=== PATIENT | male | born 2000 | race Caucasian/White ===

== ENCOUNTER 2021-03-01 08:26 | Emergency (ER) | payer OTHER, SELFPAY ==
[2021-03-01 08:31] VITALS: BP 135/90; PULSE 89; RESP 19; O2SAT 98; BMI 32.1
--- NOTE | 2021-03-01 09:13 | ED_ITS ---
HPI - General Adult General Chief complaint: General Medical Stated complaint: nose bleed Time Seen by Provider: 03/01/21 09:05 Source: patient Mode of arrival: ambulatory History of Present Illness HPI narrative: 20-year-old male with no significant past medical history presenting to the ED complaining of recurrent nosebleeds since yesterday, reporting 6-7 episodes of epistaxis lasting about 10-15mins, stopped with direct pressure, most recently 5:30 a.m. Admits to similar symptoms in the past, which required cauterization. Denies injury/trauma or picking. Denies taking anticoagulation. Denies lightheadedness/dizziness, headache, abdominal pain nausea/vomiting Onset (ago): day(s) Related Data Allergies Allergy/AdvReac Type Severity Reaction Status Date / Time No Known Allergies Allergy Unverified 07/30/20 17:06 Review of Systems Review of Systems: Constitutional: No Fever, No Chills, No Fatigue, No Malaise ENT/Mouth: +epistaxis, No Hearing loss, No Ear Pain, No Nasal Congestion, No Sinus Pain, No sore throat, No Swallowing Difficulty Eyes: No Eye Pain, No Vision Changes Cardiovascular: No Chest Pain, No SOB Respiratory: No Cough, No Dyspnea Gastrointestinal: No Nausea, No Vomiting, No Diarrhea, No Constipation, No Abdominal pain Musculoskeletal: No joint pain Skin: No Skin Lesions, No rash Neuro: No Weakness, No Numbness, No Paresthesias, No Loss of Consciousness, No Dizziness, No Headache Yes all other systems are reviewed and are negative Neurologic: Denies Abnormal speech present [facility] Past Medical History Attestation statement: The following information was validated with the patient. Social History Social History Advance Directives: No Advance Directives Information Provided: No Physical Exam 2 Vital Signs: Vital Signs: Last Vital Signs Pulse 89 03/01/21 08:31 Resp 19 03/01/21 08:31 BP 135/90 H 03/01/21 08:31 Pulse Ox 98 03/01/21 08:31 Body Mass Index 32.1 Const: General: cooperative, healthy appearing, comfortable and no acute distress Orientation/consciousness: patient oriented x3 Limitations: no limitations HENMT: Other: No active epistaxis or dry blood. No septal hematoma Head: Yes normal to inspection and Yes atraumatic Ears: hearing grossly normal bilaterally General nose exam: Normal external nose present, Normal nares present, Normal nasal mucous membranes and turbinates present, Nasal discharge present, no epistaxis and no foreign body in nares Face and sinus: Yes normal facial exam Mouth: Normal oral and palatal mucosa present and no muffled voice Throat: Yes posterior oropharynx normal, Yes uvula midline and No peritonsillar mass Eyes: General: appearance normal, both eyes and all related structures EOM: EOMs intact bilaterally Neck: Neck: Yes normal visual inspection and Yes no meningeal signs Resp: Effort & Inspection: normal respiratory effort Cardio: Rate: regular rate Skin: Rashes: no rashes Wounds: no wounds Neuro: General: patient oriented x3, tone normal, moves all extremities and no meningeal signs Cognition (Neuro): normal cognition Speech: No Abnormal speech present Gait exam (Neuro): Normal gait present Extrem: General: Yes normal to inspection Course Course Course Narrative: -no leukocytosis. H&H 12.6/41.1, platelets WNL >> no active epistaxis since ED arrival -coags slightly elevated, labs otherwise unremarkable >> results discussed with patient and mother at bedside including worrisome signs and symptoms and strict return precautions. They verbalized understanding feel safe for discharge home Medical Decision Making MDM Narrative Medical decision making narrative: 20-year-old male with no significant past medical history presenting to the ED complaining of recurrent nosebleeds since yesterday, reporting 6-7 episodes of epistaxis lasting about 10-15mins, stopped with direct pressure, most recently 5:30 a.m. On exam VSS, NAD/well-appearing, no active epistaxis at present. Rule out anemia/clotting disorder Plan: CBC/CMP, coags, observe for rebleeding Lab Data Result diagrams: 03/01/21 09:24 03/01/21 09:24 Labs: Lab Results 03/01/21 03/01/21 03/01/21 Range/Units 09:24 09:24 09:24 WBC 9.0 (4.8-10.8) X10*3/uL RBC 6.65 H (4.60-5.80) X10*6/uL Hgb 12.6 L (14.0-18.0) g/dl Hct 41.1 L (42-52) % MCV 61.8 L (80-98) fL MCH 18.9 L (27.0-33.0) pg MCHC 30.7 L (31.0-36.0) g/dl RDW 17.6 H (11.0-16.0) % Plt Count 287 (160-400) X10*3/uL MPV 10.3 (9.4-12.4) fL Immature Gran % (Auto) 0.2 (0.0-0.4) % Neut % (Auto) 63.0 (45-73) % Lymph % (Auto) 21.6 (20-40) % [place] % (Auto) 11.5 H (2-11) % Eos % (Auto) 3.3 (0-4) % Baso % (Auto) 0.4 (0-2) % Lymph # (Auto) 1.9 (1.2-4.9) X10*3/uL [place] # (Auto) 1.0 (0.1-1.2) X10*3/uL Eos # (Auto) 0.3 (0.0-0.4) X10*3/uL Baso # (Auto) 0.0 (0.0-0.2) X10*3/uL Abs Immat Gran (auto) 0.02 (0.00-0.03) X10*3/uL Absolute Neuts (auto) 5.7 (2.0-8.3) X10*3/uL Absolute Nucleated RBC 0.000 (0.0-0.012) X10*3/uL Nucleated RBC % (auto) 0.0 (0.0-0.2) /100WBC PT 14.0 H (10.8-13.0) SEC INR 1.2 H (0.9-1.1) APTT 41.5 H (24.1-38.0) SEC Sodium 139 (135-145) mmol/L Potassium 4.3 (3.3-5.1) mmol/L Chloride 104 (96-108) mmol/L Carbon Dioxide 26 (22-29) mmol/L Anion Gap 13 (12-20) BUN 14 (9-16) mg/dL Creatinine 1.05 (0.5-1.4) mg/dL Estim Creat Clear Calc 150.2 Estimated GFR > 60 Random Glucose 104 (60-115) mg/dL Calcium 9.3 (8.4-10.2) mg/dL Discharge Plan Discharge Clinical Impression: Recurrent epistaxis Patient Disposition: Home, Self-Care Instructions: Nosebleed (ED) Additional Instructions: Your blood work was reassuring today in the ED, it is important that you follow- up with her primary care doctor as well as an ear nose throat specialist Use saline rinses at home to keep your nasal mucosa moist Also consider getting a humidifier Avoid picking nose, trauma to the area, blowing, or any increased pressure for t he next few days If you rebleed hold direct pressure for 10-15 minutes, this does not control bleeding return to the ED Referrals: Johnny Meehan [Physician] - 2 days
[2021-03-01 09:29] LABS: MANUAL DIFF FLAG NO
[2021-03-01 09:30] LABS: Basophils Percent Auto 0.4 % (0-2); Eosinophils Absolute Auto 0.3 X10*3/uL (0.0-0.4); Eosinophils Percent Auto 3.3 % (0-4); Hematocrit 41.1 % (42-52); Hemoglobin 12.6 g/dl (14.0-18.0); Imm Gran Abs Auto 0.02 X10*3/uL (0.00-0.03); Imm Gran Pct Auto 0.2 % (0.0-0.4); Lymphocytes Absolute Auto 1.9 X10*3/uL (1.2-4.9); Lymphocytes Percent Auto 21.6 % (20-40); Mean Corpuscular HGB Conc 30.7 g/dl (31.0-36.0); Mean Corpuscular Hemoglobin 18.9 pg (27.0-33.0); Mean Platelet Volume 10.3 fL (9.4-12.4); Monocytes Percent Auto 11.5 % (2-11); Neutrophils Absolute Auto 5.7 X10*3/uL (2.0-8.3); Platelet Count 287 X10*3/uL (160-400); Red Blood Count 6.65 X10*6/uL (4.60-5.80); Red Cell Distribution Width 17.6 % (11.0-16.0)
[2021-03-01 09:35] LABS: Mean Corpuscular Volume 61.8 fL (80-98)
[2021-03-01 09:41] LABS: INTERNATIONAL NORM RATIO 1.2 (0.9-1.1)
[2021-03-01 10:00] LABS: Partial Thromboplastin Time 41.5 SEC (24.1-38.0)
[2021-03-01 10:03] LABS: Anion Gap 13 (12-20); Blood Urea Nitrogen 14 mg/dL (9-16); Calcium 9.3 mg/dL (8.4-10.2); Carbon Dioxide 26 mmol/L (22-29); Chloride 104 mmol/L (96-108); Creatinine Clr Calc Pharmacy 150.2; Estimated Glomerular Filt Rate > 60; Glucose Random 104 mg/dL (60-115); Potassium 4.3 mmol/L (3.3-5.1); Sodium 139 mmol/L (135-145)
== END 2021-03-01 10:56 | disposition home or self-care (01) ==
PROVIDERS: Physician Assistant; Emergency Provider Emergency Medicine; PCP Pediatrics
DX: R04.0 Epistaxis (principal)
CPT/HCPCS: 36415; 80048; 85025; 85060; 85610; 85730; 99283

== ENCOUNTER 2021-09-05 09:13 | Emergency (ER) | payer OTHER, SELFPAY ==
--- NOTE | ~2021-09-05 | XR_ITS ---
EXAMINATION: XR CHEST CLINICAL INFORMATION: Chest pain COMPARISON: None TECHNIQUE: 2 views of the chest were obtained. FINDINGS: The lungs are well-expanded and clear. The heart size and pulmonary vascularity is normal. No gross bony abnormality seen. XR/XR chest 2V IMPRESSION: Unremarkable chest exam.
[2021-09-05 09:22] VITALS: BP 122/88; BP 137/83; PULSE 96; PULSE 98; RESP 14; O2SAT 98; O2SAT 99; BMI 25.0
--- NOTE | 2021-09-05 09:29 | ECG_ITS ---
Test Reason : cp Blood Pressure : / mmHG Vent. Rate : 093 BPM Atrial Rate : 093 BPM P-R Int : 148 ms QRS Dur : 108 ms QT Int : 358 ms P-R-T Axes : 042 104 031 degrees QTc Int : 445 ms Normal sinus rhythm Rightward axis Intra-ventricular conduction delay Borderline ECG No previous ECGs available Referred By: David Li Electronically Signed By:ASHLEY CORONADO MD
--- NOTE | 2021-09-05 09:30 | ED_ITS ---
HPI - Chest Pain General Chief Complaint: Chest Pain Stated Complaint: Sharp pain breathing in Time Seen by Provider: 09/05/21 09:28 Source: patient Mode of arrival: ambulatory Limitations: no limitations History of Present Illness HPI narrative: This is a 20 years old patient presented to the emergency department with left-sided pleuritic chest pain since yesterday complaint: chest pain Onset (ago): day(s) (1) Timing of current episode: constant Prior episodes: No Onset: during rest Pain location: substernal and left chest Pain radiation: none Quality: sharp Relieving factors: nothing Exacerbating factors: inspiration Risk Factors Coronary artery disease risk factors: none Thoracic aortic dissection risk factors: none Related Data Allergies Allergy/AdvReac Type Severity Reaction Status Date / Time No Known Allergies Allergy Unverified 07/30/20 17:06 Review of Systems Review of Systems: Yes all other systems are reviewed and are negative Constitutional: Constitutional: Reports no additional constitutional complaints ENT: Reports system reviewed and no additional complaints, except as documented Cardiovascular: Cardiovascular: Denies syncope, Denies rapid heart rate, Denies dyspnea and Denies dyspnea on exertion Respiratory: Respiratory: Denies pain with cough, Denies dyspnea and Denies dyspnea on exertion Musculoskeletal: Musculoskeletal: Reports no additional musculoskeletal complaints Neurologic: Reports system reviewed and no additional complaints, except as documented and Denies syncope [facility] Social History Social History Use of substances other than those prescribed or required for medical reasons: Unable to respond Advance Directives: No Advance Directives Information Provided: No Physical Exam Vital Signs: Vital Signs: Last Vital Signs Pulse 60 09/05/21 10:07 Resp 14 09/05/21 10:07 BP 131/56 L 09/05/21 10:07 Pulse Ox 100 09/05/21 10:07 Body Mass Index 25.0 Const: Other: He looks well he is not toxic-appearing General: cooperative Orientation/consciousness: oriented to person, oriented to place, oriented to time and patient oriented x3 HENMT: Head: Yes normal to inspection Face and sinus: Yes normal facial exam Mouth: Normal oral and palatal mucosa present Neck: Neck: Yes normal visual inspection and Yes full ROM Thyroid: Thyroid normal Carotids: normal carotid upstroke Lymphatic: no lymphadenopathy noted Chest: Chest palpation & inspection: normal inspection of the chest Resp: Effort & Inspection: normal respiratory effort and able to speak in complete sentences Auscultation: clear to auscultation bilaterally Cardio: Jugular venous distension: no JVD Rate: regular rate Rhythm: regular rhythm Heart sounds: S1 normal heart sound present GI: Inspection: Yes normal to inspection Palpation (GI): Soft to palpation and nontender Auscultation: normal bowel sounds Skin: General skin exam: no rashes or lesions noted, elasticity normal and turgor normal Neuro: General: oriented to person, oriented to place, oriented to time and patient oriented x3 Course Reevaluation(s) Reevaluation #1: Feeling better, D-dimer negative, high sensitive troponin negative, chest x-ray was negative, point of care cardiac ultrasound showed no pericardial effusion I think is okay to discharge the patient home MDM - Chest Pain MDM Narrative Medical decision making narrative: Per patient has no significant liver risk of for early coronary artery disease. Pain is pleuritic. I perform a bedside point of care ultrasound there is no pericardial effusion, there is no right ventricular strain left ventricle is torito well. Also patient does lung sliding and this rule out pneumothorax. Will obtain basic labs and electrocardiogram a and we will do a D-dimer given pleuritic nature of the pain Lab Data Result diagrams: 09/05/21 09:45 09/05/21 09:45 Labs: Lab Results 09/05/21 09/05/21 09/05/21 Range/Units 09:45 09:45 09:45 WBC 10.5 (4.8-10.8) X10*3/uL RBC 6.57 H (4.60-5.80) X10*6/uL Hgb 13.0 L (14.0-18.0) g/dl Hct 41.5 L (42-52) % MCV 63.2 L (80-98) fL MCH 19.8 L (27.0-33.0) pg MCHC 31.3 (31.0-36.0) g/dl RDW 18.4 H (11.0-16.0) % Plt Count 260 (160-400) X10*3/uL MPV 10.0 (9.4-12.4) fL Immature Gran % (Auto) 0.3 (0.0-0.4) % Neut % (Auto) 68.9 (45-73) % Lymph % (Auto) 15.8 L (20-40) % [place] % (Auto) 9.4 (2-11) % Eos % (Auto) 5.2 H (0-4) % Baso % (Auto) 0.4 (0-2) % Lymph # (Auto) 1.7 (1.2-4.9) X10*3/uL [place] # (Auto) 1.0 (0.1-1.2) X10*3/uL Eos # (Auto) 0.6 H (0.0-0.4) X10*3/uL Baso # (Auto) 0.0 (0.0-0.2) X10*3/uL Abs Immat Gran (auto) 0.03 (0.00-0.03) X10*3/uL Absolute Neuts (auto) 7.3 (2.0-8.3) X10*3/uL Absolute Nucleated RBC 0.000 (0.0-0.012) X10*3/uL Nucleated RBC % (auto) 0.0 (0.0-0.2) /100WBC D-Dimer < 200 NG/ML Sodium 140 (135-145) mmol/L Potassium 3.9 (3.3-5.1) mmol/L Chloride 104 (96-108) mmol/L Carbon Dioxide 28 (22-29) mmol/L Anion Gap 12 (12-20) BUN 13 (9-16) mg/dL Creatinine 0.91 (0.5-1.4) mg/dL Estim Creat Clear Calc 154.7 Estimated GFR > 60 Random Glucose 88 (60-115) mg/dL Calcium 9.6 (8.4-10.2) mg/dL Total Bilirubin 0.9 (0.0-1.0) mg/dL AST 23 (5-37) U/L ALT 41 H (0-40) U/L Alkaline Phosphatase 90 (39-117) U/L Troponin I High Sens (<3.5-35.0) ng/L Total Protein 7.5 (6.5-8.0) g/dL Albumin 4.7 (3.5-5.0) g/dL 09/05/21 Range/Units 09:45 WBC (4.8-10.8) X10*3/uL RBC (4.60-5.80) X10*6/uL Hgb (14.0-18.0) g/dl Hct (42-52) % MCV (80-98) fL MCH (27.0-33.0) pg MCHC (31.0-36.0) g/dl RDW (11.0-16.0) % Plt Count (160-400) X10*3/uL MPV (9.4-12.4) fL Immature Gran % (Auto) (0.0-0.4) % Neut % (Auto) (45-73) % Lymph % (Auto) (20-40) % [place] % (Auto) (2-11) % Eos % (Auto) (0-4) % Baso % (Auto) (0-2) % Lymph # (Auto) (1.2-4.9) X10*3/uL [place] # (Auto) (0.1-1.2) X10*3/uL Eos # (Auto) (0.0-0.4) X10*3/uL Baso # (Auto) (0.0-0.2) X10*3/uL Abs Immat Gran (auto) (0.00-0.03) X10*3/uL Absolute Neuts (auto) (2.0-8.3) X10*3/uL Absolute Nucleated RBC (0.0-0.012) X10*3/uL Nucleated RBC % (auto) (0.0-0.2) /100WBC D-Dimer NG/ML Sodium (135-145) mmol/L Potassium (3.3-5.1) mmol/L Chloride (96-108) mmol/L Carbon Dioxide (22-29) mmol/L Anion Gap (12-20) BUN (9-16) mg/dL Creatinine (0.5-1.4) mg/dL Estim Creat Clear Calc Estimated GFR Random Glucose (60-115) mg/dL Calcium (8.4-10.2) mg/dL Total Bilirubin (0.0-1.0) mg/dL AST (5-37) U/L ALT (0-40) U/L Alkaline Phosphatase (39-117) U/L Troponin I High Sens < 3.5 (<3.5-35.0) ng/L Total Protein (6.5-8.0) g/dL Albumin (3.5-5.0) g/dL Imaging Data Chest x-ray: Radiologist's impression: Accession Number(s): [id number] Accession Number(s): [id number] cc: David Li MD~ EXAMINATION: XR CHEST CLINICAL INFORMATION: Chest pain COMPARISON: None TECHNIQUE: 2 views of the chest were obtained. FINDINGS: The lungs are well-expanded and clear. The heart size and pulmonary vascularity is normal. No gross bony abnormality seen. XR/XR chest 2V IMPRESSION: Unremarkable chest exam. Dictated By: Daljit Carroll MD Signed By: <Electronically signed by Daljit Carroll MD in OV> 09/05/21 1027 DD/ 0929 ECG Data ECG #1: ECG interpretation date: 09/05/21 ECG interpretation time: 09:41 Pacemaker model: NSR 93 nl axis ,Q 2,no st-t changes Discharge Plan Discharge Clinical Impression: Chest pain Patient Disposition: Home, Self-Care Instructions: Chest Pain (ED) Additional Instructions: Follow-up with your primary care physician tomorrow return if you worse or you could take ibuprofen as needed for pain Referrals: Rashaun Garcia MD [Primary Care Provider] - 2 days Interventions: ED Discharge Assessment Last Done: 09/05/21 11:51 Discharge Date/Time: 09/05/21 11:52
[2021-09-05 09:50] LABS: MANUAL DIFF FLAG NO
[2021-09-05 09:51] LABS: Basophils Percent Auto 0.4 % (0-2); Eosinophils Absolute Auto 0.6 X10*3/uL (0.0-0.4); Eosinophils Percent Auto 5.2 % (0-4); Hematocrit 41.5 % (42-52); Imm Gran Abs Auto 0.03 X10*3/uL (0.00-0.03); Imm Gran Pct Auto 0.3 % (0.0-0.4); Lymphocytes Absolute Auto 1.7 X10*3/uL (1.2-4.9); Lymphocytes Percent Auto 15.8 % (20-40); Mean Corpuscular HGB Conc 31.3 g/dl (31.0-36.0); Mean Corpuscular Hemoglobin 19.8 pg (27.0-33.0); Monocytes Percent Auto 9.4 % (2-11); Neutrophils Absolute Auto 7.3 X10*3/uL (2.0-8.3); Neutrophils Percent Auto 68.9 % (45-73); Platelet Count 260 X10*3/uL (160-400); Red Blood Count 6.57 X10*6/uL (4.60-5.80); Red Cell Distribution Width 18.4 % (11.0-16.0); White Blood Count 10.5 X10*3/uL (4.8-10.8)
[2021-09-05 09:52] LABS: Mean Corpuscular Volume 63.2 fL (80-98)
[2021-09-05 10:00] LABS: D Dimer < 200 NG/ML
[2021-09-05 10:07] VITALS: BP 131/56; PULSE 60; RESP 14; O2SAT 100
[2021-09-05 10:10] LABS: Troponin-I High Sensitivity < 3.5 ng/L (<3.5-35.0)
[2021-09-05 10:11] LABS: Alanine Aminotransferase 41 U/L (0-40); Albumin Level 4.7 g/dL (3.5-5.0); Alkaline Phosphatase 90 U/L (39-117); Anion Gap 12 (12-20); Aspartate Amino Transferase 23 U/L (5-37); Bilirubin Total 0.9 mg/dL (0.0-1.0); Blood Urea Nitrogen 13 mg/dL (9-16); Calcium 9.6 mg/dL (8.4-10.2); Carbon Dioxide 28 mmol/L (22-29); Chloride 104 mmol/L (96-108); Creatinine Clr Calc Pharmacy 154.7; Estimated Glomerular Filt Rate > 60; Glucose Random 88 mg/dL (60-115); Potassium 3.9 mmol/L (3.3-5.1); Sodium 140 mmol/L (135-145); Total Protein 7.5 g/dL (6.5-8.0)
--- NOTE | 2021-09-05 10:28 | PC.NURSE ---
Dev is resting in bed, mom at bedside. SR on bedside monitor. RR 28-30, shallow, without use of accessory muscles. MD aware of RR. Pt denies feeling SOb at rest. No cyanosis, no cough, room air sat's 95% Awaiting lab results/MD dispo. Will continue to monitor.
[2021-09-05] MEDS: Ibuprofen 800 MG TABLET PO (10:37)
== END 2021-09-05 11:52 | disposition home or self-care (01) ==
PROVIDERS: Emergency Provider Emergency Medicine; PCP Internal Medicine
DX: R07.9 Chest pain, unspecified (principal); Z79.899 Other long term (current) drug therapy
CPT/HCPCS: 36415; 71046; 80053; 84484; 85025; 85379; 93005; 99283; 99285

== ENCOUNTER 2023-07-07 23:13 | Emergency (ER) | payer MEDICAID, SELFPAY ==
--- NOTE | 2023-07-07 | ECG_ITS ---
Test Reason : CHEST PAIN Blood Pressure : / mmHG Vent. Rate : 102 BPM Atrial Rate : 102 BPM P-R Int : 152 ms QRS Dur : 102 ms QT Int : 324 ms P-R-T Axes : 053 105 018 degrees QTc Int : 422 ms Sinus tachycardia Rightward axis Borderline ECG When compared with ECG of 05-SEP-2021 09:38, No significant change was found Referred By: Generic ED Physician Electronically Signed By:EFRAÍN VALDEZ
--- NOTE | ~2023-07-07 | CT_ITS ---
EXAMINATION: CT ANGIOGRAM OF THE CHEST WITH AND WITHOUT CONTRAST (CT PULMONARY ANGIOGRAM FOR PE) CLINICAL INFORMATION: Reason for Exam chest pain SOB COMPARISON: None available. TECHNIQUE: Prior to contrast administration, noncontrast localization images were obtained. Subsequently, multidetector volumetric imaging was performed from the thoracic inlet to below the diaphragms following the administration of 65 mL Omnipaque 350 intravenous contrast. No contrast reaction reported Sagittal, coronal, and MIP oblique sagittal reformatted images were obtained on the CT workstation, uploaded to PACS, and reviewed. This CT examination was performed using dose optimization techniques as appropriate, variously including the following: *Automated exposure control *Adjustment of mA and/or kV according to patient size (this includes techniques or standardized protocols for targeted exams where dose is matched to indication/reason for exam; i.e. extremities or head) *Use of iterative reconstruction technique Total exam dose-length product 379 mGy-cm FINDINGS: QUALITY OF STUDY/CONTRAST BOLUS: Suboptimal. PULMONARY ARTERIES: Suboptimal assessment due to respiratory motion artifact. No central pulmonary embolus is seen, though the possibility of segmental or subsegmental emboli cannot be reliably excluded. THORACIC AORTA: No aneurysm. LUNG: Limited detailed evaluation due to respiratory motion artifact. There is patchy opacity in the medial right middle lobe. PLEURA: No pleural effusion or pneumothorax. MEDIASTINUM: The visualized thyroid gland is unremarkable. There are subcentimeter mediastinal lymph nodes within the range of normal variation. Cardiac size is within normal limits; no pericardial effusion. No evidence of septal bowing or right heart strain. CORONARY ARTERY CALCIFICATION: None visualized on this study. CHEST WALL/AXILLA: No axillary or internal mammary lymphadenopathy. OSSEOUS STRUCTURES: No acute or suspicious osseous abnormality. UPPER ABDOMEN: Unremarkable. No reflux of contrast into the hepatic veins to suggest elevated right heart pressures. CT/CT angio chest PE protocol IMPRESSION: 1. Suboptimal assessment due to respiratory motion artifact. No central pulmonary embolus is seen, though the possibility of segmental or subsegmental emboli cannot be reliably excluded. 2. Patchy opacity in the medial right middle lobe, suspicious for infectious consolidation versus bronchiolitis. VTE: negative.
--- NOTE | ~2023-07-07 | XR_ITS ---
EXAMINATION: XR CHEST CLINICAL INFORMATION: Shortness of breath COMPARISON: No comparison. TECHNIQUE: 2 views of the chest were obtained. FINDINGS: The cardiomediastinal silhouette is normal. There is no focal lung consolidation or pleural effusion. The bony structures and soft tissues are unremarkable. XR/XR chest 2V IMPRESSION: No active cardiopulmonary disease.
[2023-07-07 23:17] VITALS: BP 153/112; PULSE 122; O2SAT 98
[2023-07-07 23:36] VITALS: BP 143/80; PULSE 113; RESP 24; TEMP 37.4; O2SAT 93; BMI 31.6
[2023-07-08 00:07] LABS: MANUAL DIFF FLAG NO
[2023-07-08 00:08] LABS: Basophils Absolute Auto 0.1 X10*3/uL (0.0-0.2); Basophils Percent Auto 0.4 % (0-2); Eosinophils Absolute Auto 0.2 X10*3/uL (0.0-0.4); Eosinophils Percent Auto 1.4 % (0-4); Hematocrit 42.1 % (42.0-52.0); Hemoglobin 13.5 g/dl (14.0-18.0); Imm Gran Abs Auto 0.04 X10*3/uL (0.00-0.03); Imm Gran Pct Auto 0.3 % (0.0-0.4); Lymphocytes Absolute Auto 2.3 X10*3/uL (1.2-4.9); Lymphocytes Percent Auto 17.4 % (20-40); Mean Corpuscular HGB Conc 32.1 g/dl (31.0-36.0); Mean Corpuscular Hemoglobin 20.1 pg (27.0-33.0); Mean Platelet Volume 10.5 fL (9.4-12.4); Monocytes Absolute Auto 1.1 X10*3/uL (0.1-1.2); Monocytes Percent Auto 8.3 % (2-11); Neutrophils Absolute Auto 9.7 x10*3/uL (2.0-8.3); Neutrophils Percent Auto 72.2 % (45-73); Platelet Count 250 X10*3/uL (160-400); Red Blood Count 6.73 X10*6/uL (4.60-5.80); Red Cell Distribution Width 17.2 % (11.0-16.0); White Blood Count 13.5 X10*3/uL (4.8-10.8)
[2023-07-08 00:10] LABS: Mean Corpuscular Volume 62.6 fL (80.0-98.0)
[2023-07-08 00:22] LABS: COVID-19 Test Negative (Negative); IDNOW Serial# 6674DD1D
[2023-07-08 00:32] LABS: Anion Gap 11 (12-20); Blood Urea Nitrogen 19 mg/dL (9-16); Calcium 9.7 mg/dL (8.4-10.2); Carbon Dioxide 26 mmol/L (22-29); Chloride 110 mmol/L (96-108); Estimated Glomerular Filt Rate > 60; Glucose Random 81 mg/dL (60-115); Potassium 4.3 mmol/L (3.3-5.1); Sodium 143 mmol/L (135-145)
--- NOTE | 2023-07-08 03:14 | ED.GENADULT ---
HPI - General Adult General Chief complaint: Dyspnea Stated complaint: cp? anxiety Time Seen by Provider: 07/08/23 03:10 Source: patient, family and EMS Mode of arrival: EMS Limitations: no limitations History of Present Illness HPI narrative: 22-year-old male presents with chest pain. Symptoms started approximately 9:00 p.m. this evening all the sudden. Associated with shortness of breath. There is no clear relieving or exacerbating symptoms. Pain was a 7/10 earlier is currently a 4/10. Pain does not radiate. There is no lower extremity edema. Denies a history of PE or DVT. 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 This was surgically repaired upon . Patient denies any recent fevers, chills, cough or mucus production. He denies any nausea vomiting. Patient denies a history of similar pain. Related Data Previous Rx's Medication Instructions Recorded azithromycin 250 mg tablet 250 mg PO DAILY 4 days #4 tabs 07/08/23 Allergies Allergy/AdvReac Type Severity Reaction Status Date / Time No Known Allergies Allergy Verified 07/07/23 23:35 Review of Systems Review of Systems: CONSTITUTIONAL: Denies weight loss, fever and chills. HEENT: Denies changes in vision and hearing. RESPIRATORY: + SOB - cough. CV: Denies palpitations + CP. GI: Denies abdominal pain, nausea, vomiting and diarrhea. : Denies dysuria and urinary frequency. MSK: Denies myalgia and joint pain. SKIN: Denies rash and pruritus. NEUROLOGICAL: Denies headache and syncope. PSYCHIATRIC: Denies recent changes in mood. Denies anxiety and depression. All other ROS are negative unless in HPI PMFSH Social History Social History Advance Directives: No Advance Directives Information Provided: Yes Physical Exam ED Vital Signs: Vital Signs - 24 hr 07/07/23 23:36 07/08/23 05:12 Temperature 99.4 F Pulse Rate 113 H 78 Respiratory Rate 24 H 17 Blood Pressure 143/80 H 148/89 H Pulse Oximetry 93 92 Oxygen Delivery Method Room Air Room Air BMI result Body Mass Index 31.6 GEN: Well developed, no acute distress, alert, oriented HEENT: Normocephalic, atraumatic, normal external ears, nose appears normal, no oropharyngeal edema or exudates Eyes: Normal to appearance Neck: Supple, no lymphadenopathy Respiratory: Talks in complete sentences, no respiratory distress, clear to auscultation bilaterally Cardiovascular: Regular rate and rhythm, no murmurs rubs or gallops Abdomen: Soft, nontender, nondistended, no guarding, no rebound Back: No CVA tenderness Extremities: No clubbing cyanosis or edema Neurologic: No focal neurologic deficits, cranial nerves 2-12 intact, strength is 5/5 bilaterally Skin: No rash Course Course Course Narrative: Is 530 in the morning. The workup is complete. CT scan demonstrates no large pulmonary embolus. There are some early infiltrate seen on CT scan. He does have some elements of hypoxia with an O2 saturation 90-93% on room air. At this point, I believe the patient can be safely discharged on oral antibiotics. They can return for any worsening or concerning symptoms. They are aware his symptoms may not improve for 48-72 hours. Medications Administered Discontinued Medications Generic Name Dose Route Start Last Admin Trade Name Freq PRN Reason Stop Dose Admin Iohexol 65 ml 07/08/23 04:51 07/08/23 04:51 Iohexol 350 Mg/Ml 100 Ml Infus..Btl IV 07/08/23 04:52 65 ml ONCE ONE Administration Ketorolac Tromethamine 15 mg 07/08/23 03:45 07/08/23 04:08 Ketorolac Tromethamine 15 Mg/Ml Vial IVPUSH 07/08/23 03:46 15 mg ONCE ONE Administration Medical Decision Making Medical Decision Making [facility] Narrative: CC: CP Exam: Benign, O2 sat 93% ECG: Sinus Tach, S1Q3T3 DD: Atypical chest pain, musculoskeletal chest pain, chest wall pain, myocardial infarction, pericarditis, myocarditis, anxiety, stress, reflux, pneumonia, pulmonary embolus, dissection Plan: CTA r/o PE, analgesia Differential Diagnosis Differential Diagnoses: The differential diagnosis associated with the presentation includes (see above) Admission/Observation Consideration of admission/observation: Escalation of care including admission/observation considered Lab Data [facility] Lab Attestation statement: I reviewed the patient's lab results. 07/08/23 00:02 07/08/23 00:02 Labs: Lab Results 07/08/23 07/08/23 07/08/23 Range/Units 00:02 00:02 00:02 WBC 13.5 H (4.8-10.8) X10*3/uL RBC 6.73 H (4.60-5.80) X10*6/uL Hgb 13.5 L (14.0-18.0) g/dl Hct 42.1 (42.0-52.0) % MCV 62.6 L (80.0-98.0) fL MCH 20.1 L (27.0-33.0) pg MCHC 32.1 (31.0-36.0) g/dl RDW 17.2 H (11.0-16.0) % Plt Count 250 (160-400) X10*3/uL MPV 10.5 (9.4-12.4) fL Immature Gran % (Auto) 0.3 (0.0-0.4) % Neut % (Auto) 72.2 (45-73) % Lymph % (Auto) 17.4 L (20-40) % Hunt % (Auto) 8.3 (2-11) % Eos % (Auto) 1.4 (0-4) % Baso % (Auto) 0.4 (0-2) % Lymph # (Auto) 2.3 (1.2-4.9) X10*3/uL Hunt # (Auto) 1.1 (0.1-1.2) X10*3/uL Eos # (Auto) 0.2 (0.0-0.4) X10*3/uL Baso # (Auto) 0.1 (0.0-0.2) X10*3/uL Abs Immat Gran (auto) 0.04 H (0.00-0.03) X10*3/uL Absolute Neuts (auto) 9.7 H (2.0-8.3) x10*3/uL Absolute Nucleated RBC 0.000 (0.0-0.012) X10*3/uL Nucleated RBC % (auto) 0.0 (0.0-0.2) /100WBC Sodium 143 (135-145) mmol/L Potassium 4.3 (3.3-5.1) mmol/L Chloride 110 H (96-108) mmol/L Carbon Dioxide 26 (22-29) mmol/L Anion Gap 11 L (12-20) BUN 19 H (9-16) mg/dL Creatinine 1.17 (0.5-1.4) mg/dL Estim Creat Clear Calc 139.0 Estimated GFR > 60 Random Glucose 81 (60-115) mg/dL Calcium 9.7 (8.4-10.2) mg/dL COVID-19 ([facility]) Negative (Negative) COVID-19 Clin Com See Note Independent Interpretation I performed an independent interpretation of an: EKG (Sinus tachycardia heart rate 102, no acute ST elevations depressions, S1 Q 3 T3 with right axis deviation), Plain X-Ray (CXR NAD) and CT Scan (Angiogram chest: No large pulmonary embolus) Radiology Impression Discussion of test interpretation with radiology: I have reviewed the radiologist's reading. Radiologist Impression: CT/CT angio chest PE protocol IMPRESSION: 1.? Suboptimal assessment due to respiratory motion artifact. No central pulmonary embolus is seen, though the possibility of segmental or subsegmental emboli cannot be reliably excluded. 2.? Patchy opacity in the medial right middle lobe, suspicious for infectious consolidation versus bronchiolitis. ? VTE: negative. ? Dictated By: Vin Atkins MD Signed By: <Electronically signed by Vin Atkins MD in OV> 07/08/23 0515 Independent Historian Clinical information obtained from an independent historian. History obtained from or confirmed by: Parent and EMS Prescription Management I considered prescription management with: Pain Medication Discharge Plan Discharge Clinical Impression: Chest pain, Acute dyspnea, Community acquired pneumonia Patient Disposition: Home, Self-Care Instructions: Chest Pain (ED), Community Acquired Pneumonia (ED), Dyspnea (ED) Prescriptions: New azithromycin 250 mg tablet 250 mg PO DAILY 4 Days Qty: 4 0RF Rx Instructions: start on day 2 of therapy Referrals: Physician,Unknown J [Primary Care Provider] - (primary care provider)
[2023-07-08] MEDS: Ketorolac Tromethamine 15 MG/ML VIAL IVPUSH (04:08)
[2023-07-08] MEDS: iohexoL 350 MG/ML 100 ML INFUS..BTL 65 ML IV (04:51)
[2023-07-08 05:12] VITALS: BP 148/89; PULSE 78; RESP 17; O2SAT 92
[2023-07-08] MEDS: Azithromycin 500 MG TABLET PO (05:57)
[2023-07-08] MEDS: Albuterol Sulfate 90 MCG 8 GM INHALER 2 PUFF INHALE (06:08)
[2023-07-08 06:11] VITALS: BP 148/88; PULSE 86; RESP 24; TEMP 37.1; O2SAT 97
== END 2023-07-08 06:12 | disposition home or self-care (01) ==
PROVIDERS: Emergency Provider Emergency Medicine
DX: R07.9 Chest pain, unspecified (principal); R06.00 Dyspnea, unspecified; J18.8 Other pneumonia, unspecified organism; R00.0 Tachycardia, unspecified; Z20.822 Contact with and (suspected) exposure to COVID-19; R06.02 Shortness of breath
CPT/HCPCS: 71046; 71275; 80048; 85025; 87635; 93005; 96372; 99284; 99285; J1885; Q9967

== ENCOUNTER 2023-10-14 12:25 | Emergency (ER) | payer MEDICAID, SELFPAY ==
[2023-10-14 12:53] VITALS: BP 126/78; PULSE 100; RESP 18; TEMP 36.9; O2SAT 97; BMI 32.3
--- NOTE | 2023-10-14 12:54 | ED_ITS ---
HPI - URI/Sore Throat General Chief Complaint: Upper Respiratory Symptoms Stated Complaint: Headache/Lightheaded Time Seen by Provider: 10/14/23 13:00 Source: patient Mode of arrival: ambulatory Limitations: no limitations History of Present Illness HPI Narrative: Patient is a 22 year old male who presents to the to the emergency department for evaluation of cough, sore throat, nasal congestion, headache over the past 3 days that is progressively worsening. Denies neck pain or neck stiffness. Denies CP, SOB, dizziness, numbness or tingling. His significant other is ill with similar symptoms Related Data Previous Rx's Medication Instructions Recorded azithromycin 250 mg tablet 250 mg PO DAILY 4 days #4 tabs 07/08/23 Allergies Allergy/AdvReac Type Severity Reaction Status Date / Time No Known Allergies Allergy Verified 10/14/23 12:53 Review of Systems Review of Systems: Yes all other systems are reviewed and are negative [facility] Past Medical History Attestation statement: The following information was validated with the patient. Source: old records reviewed Social History Social History Advance Directives: No Advance Directives Information Provided: No Physical Exam Vital Signs: Vital Signs: Last Vital Signs Temp 98.5 F 10/14/23 12:53 Pulse 100 10/14/23 12:53 Resp 18 10/14/23 12:53 BP 126/78 10/14/23 12:53 Pulse Ox 97 10/14/23 12:53 O2 Del Method Room Air 10/14/23 12:53 BMI result Body Mass Index 32.3 Appearance: Alert.?Oriented to person, place and time. No acute distress.?Normal affect. Eyes: Pupils equal, round and reactive to light.? ENT: TM normal bilaterally. Pharynx normal.?? Neck: Normal inspection.? Neck supple.??No cervical adenopathy CVS: Heart sounds normal. Normal heart rate and rhythm.? Pulses normal.?? Respiratory: No respiratory distress.? Lung sounds clear to auscultation bilaterally?? Abdomen: Soft and non-tender. Normoactive bowel sounds. Skin: Skin warm and dry.? Normal skin color.? ? Extremities: No lower extremity edema.? Neuro: Moves all extremities spontaneously. Sensation intact bilaterally. No motor deficits. Ambulates with normal steady gait. Medications Administered Discontinued Medications Generic Name Dose Route Start Last Admin Trade Name Gab PRN Reason Stop Dose Admin Ibuprofen 600 mg 10/14/23 12:58 10/14/23 13:01 Ibuprofen 600 Mg Tablet PO 10/14/23 12:59 600 mg ONCE ONE Administration Medical Decision Making Medical Decision Making [facility] Narrative: Patient is a 22-year-old male who is presenting for evaluation of upper respiratory symptoms. COVID-19 testing positive, discuseed Paxlovid indications for EUA, side effects, and he declined treatment. At this time history and physical exam not consistent with ACS/PE/pneumonia. No meningismus. Well- appearing, nontoxic, afebrile, no tachycardia or tachypnea/hypoxia. Speaking clear full sentences, ambulatory with steady gait. Discussed conservative treatment including rest, hydration, Tylenol/ibuprofen as needed for fever and body aches, saline nasal spray, humidifier, [id number] cold medication. Advised to follow-up with primary care provider as needed, discussed reasons to return back to the emergency department. All questions were answered. Patient discharged home in stable condition. Provided with a return to work/school note. Differential Diagnosis Differential Diagnoses: The differential diagnosis associated with the present ation includes (As noted above) Lab Data [facility] Lab Attestation statement: I reviewed the patient's lab results. (As noted above) Labs: Lab Results 10/14/23 Range/Units 13:04 Influenza Type A (PCR) NEGATIVE (Negative) Influenza Type B (PCR) NEGATIVE (Negative) RSV RNA Qual (PCR) NEGATIVE (Negative) SARS-CoV-2 RNA (RT-PCR) POSITIVE A (Negative) Independent Historian Clinical information obtained from an independent historian. History obtained from or confirmed by: Spouse Prescription Management I considered prescription management with: Antibiotic (Likely viral, antibiotics deferred) Discharge Plan Discharge Clinical Impression: COVID-19 Patient Disposition: Home, Self-Care Instructions: Upper Respiratory Infection (ED) Additional Instructions: Be sure to rest, stay well hydrated drinking plenty of fluids, eat small frequent meals. Tylenol/ibuprofen can be used as needed for fever/pain. Nuwv-seg-znnrktc cold medications may be helpful as well for symptoms. Saline nasal spray, humidifier may be helpful for nasal congestion. You may return to the emergency department with any new or worsening symptoms or concerns. Follow-up with your primary care provider as needed. Should remain out of school/ work until symptoms have resolved and have been without a fever for 24 hours without the use of Tylenol or ibuprofen. Prescriptions: No Action azithromycin 250 mg tablet 250 mg PO DAILY 4 Days Qty: 4 0RF Rx Instructions: start on day 2 of therapy Referrals: Rashaun Garcia MD [Primary Care Provider] - Stand Alone Forms: Work/School Release Interventions: ED Discharge Assessment Last Done: 10/14/23 13:09 Discharge Date/Time: 10/14/23 13:10
[2023-10-14] MEDS: Ibuprofen 600 MG TABLET PO (13:01)
[2023-10-14 13:51] LABS: Influenza A PCR NEGATIVE (Negative); Influenza B PCR NEGATIVE (Negative); Resp Syncy Virus RNA Qual PCR NEGATIVE (Negative); SARS COV2 PCR INHOUSE POSITIVE (Negative)
== END 2023-10-14 13:10 | disposition home or self-care (01) ==
PROVIDERS: Nurse Practitioner Family; Emergency Provider Emergency Medicine; PCP Internal Medicine
DX: U07.1 COVID-19 (principal)
CPT/HCPCS: 0241U; 99283

== ENCOUNTER 2023-11-11 04:58 | Emergency (ER) | payer MEDICAID, SELFPAY ==
[2023-11-11 04:59] VITALS: BP 146/72; PULSE 54; RESP 18; TEMP 36.6; O2SAT 98; BMI 32.3
[2023-11-11 05:21] LABS: IDNOW Serial# 08D9AD1C; Strep A Nucleic Acid Negative (Negative)
[2023-11-11 05:48] LABS: Influenza A PCR NEGATIVE (Negative); Influenza B PCR NEGATIVE (Negative); Resp Syncy Virus RNA Qual PCR NEGATIVE (Negative); SARS COV2 PCR INHOUSE NEGATIVE (Negative)
--- NOTE | 2023-11-11 07:54 | ED_ITS ---
HPI - URI/Sore Throat General Chief Complaint: Upper Respiratory Symptoms Stated Complaint: Sore throat Time Seen by Provider: 11/11/23 07:31 Source: patient Mode of arrival: ambulatory Limitations: no limitations History of Present Illness HPI Narrative: sore throat and loss of voice x 2 days MD elicited complaint: sore throat Onset (ago): day(s) (2) Consistency: constant Severity: moderate Description of mucous: clear Able to tolerate fluids by mouth: Yes Exacerbating factors: swallowing Relieving factors: nothing Associated symptoms: fever, chills and sore throat Treatments prior to arrival: none Related Data Previous Rx's Medication Instructions Recorded azithromycin 250 mg tablet 250 mg PO DAILY 4 days #4 tabs 07/08/23 Allergies Allergy/AdvReac Type Severity Reaction Status Date / Time No Known Allergies Allergy Verified 11/11/23 05:03 Review of Systems Review of Systems: Constitutional : positive Fever, positive Chills, ENT/Mouth : positive sore throat, no runny nose Eyes: No Discharge Cardiovascular : No Chest Pain, No SOB Respiratory : No Cough, No Sputum Gastrointestinal : No Nausea, No Vomiting, No Diarrhea Genitourinary : No Dysuria, No Urinary Frequency Musculoskeletal : no Myalgia Skin : No rash Neuro : No Headache Yes all other systems are reviewed and are negative [facility] Past Medical History Attestation statement: The following information was validated with the patient. Source: old records reviewed Medical History COVID-19 Social History Social History Patient Tobacco Use Status: Tobacco use Unknown Physical Exam Vital Signs: Vital Signs: Last Vital Signs Temp 97.9 F 11/11/23 04:59 Pulse 54 11/11/23 04:59 Resp 18 11/11/23 04:59 BP 146/72 H 11/11/23 04:59 Pulse Ox 98 11/11/23 04:59 O2 Del Method Room Air 11/11/23 04:59 BMI result Body Mass Index 32.3 Appearance: Alert. Oriented X3. No acute distress. Eyes: Pupils equal, round and reactive to light. ENT: Pharynx mild erythema no exudates hoarse voice, no stridor, normal ROM of neck, uvula midline Neck: Normal inspection. Neck supple. CVS: Normal heart rate and rhythm. Pulses normal. Respiratory: No respiratory distress. Breath sounds normal. Abdomen: Soft and nontender. Skin: Skin warm and dry. Normal skin color. . Extremities: No lower extremity edema. Neuro: Oriented X 3. No motor deficit. No sensory deficit. Medical Decision Making Medical Decision Making [facility] Narrative: 22 yo male no PMH here with loss of voice and sore throat - not toxic, no airway issues, normal ROM of neck, uvula midline no [employer] on exam at this time suspect viral laryngitis will DC home after swabs and supportive care doubt strep throat Differential Diagnosis Differential Diagnoses: The differential diagnosis associated with the presentation includes flu, strep, laryngitis Lab Data [facility] Lab Attestation statement: I reviewed the patient's lab results. Labs: Lab Results 11/11/23 Range/Units 05:06 Influenza Type A (PCR) NEGATIVE (Negative) Influenza Type B (PCR) NEGATIVE (Negative) RSV RNA Qual (PCR) NEGATIVE (Negative) SARS-CoV-2 RNA (RT-PCR) NEGATIVE (Negative) S. pyogenes GrpA [place] Negative (Negative) Independent Historian Clinical information obtained from an independent historian. History obtained from or confirmed by: Spouse External Record Review External record reviewed: Inpatient record Discharge Plan Discharge Clinical Impression: Laryngitis Patient Disposition: Home, Self-Care Instructions: Laryngitis (ED) Additional Instructions: swabs are negative for flu covid rsv and strep this is likely viral - tylenol and motrin for fevers. return for worsening pain, fever more than 2 days, no improvement in 2 days or any other concerns. Prescriptions: No Action azithromycin 250 mg tablet 250 mg PO DAILY 4 Days Qty: 4 0RF Rx Instructions: start on day 2 of therapy Stand Alone Forms: Work/School Release
== END 2023-11-11 08:08 | disposition home or self-care (01) ==
PROVIDERS: Emergency Provider Emergency Medicine; PCP Internal Medicine
DX: J04.0 Acute laryngitis (principal); J02.9 Acute pharyngitis, unspecified; Z20.822 Contact with and (suspected) exposure to COVID-19; Z20.828 Contact with and (suspected) exposure to other viral communicable diseases
CPT/HCPCS: 0241U; 87651; 99282; 99283

== ENCOUNTER 2024-03-30 00:11 | Emergency (ER) | payer MEDICAID, SELFPAY ==
--- NOTE | ~2024-03-30 | XR_ITS ---
EXAMINATION: XR CALCANEUS, LEFT CLINICAL INFORMATION: Pain. COMPARISON: None available. TECHNIQUE: Lateral and axial views of the left calcaneus were obtained. FINDINGS: The bones and soft tissues are normal. No fracture. Alignment is anatomic. Joint spaces are maintained. No enthesopathic spurs are evident at the calcaneus. XR/XR calcaneus LT min 2V IMPRESSION: No significant abnormality identified.
[2024-03-30 00:21] VITALS: BP 142/88; PULSE 90; RESP 18; TEMP 36.4; O2SAT 99; BMI 37.1
--- NOTE | 2024-03-30 01:31 | ED_ITS ---
HPI - Extremity Problem General Chief complaint: Extremity Injury, Lower Stated complaint: left heel pain Time Seen by Provider: 03/30/24 01:19 Source: patient Mode of arrival: ambulatory Limitations: no limitations History of Present Illness HPI Narrative: Patient with complaining of pain the left sole for last few days especially when he put the 1st step to the ground in the morning. No trauma Related Data Previous Rx's ?Medication ?Instructions ?Recorded azithromycin 250 mg tablet 250 mg PO DAILY 4 days #4 tabs 07/08/23 Allergies Allergy/AdvReac Type Severity Reaction Status Date / Time No Known Allergies Allergy Verified 03/30/24 00:23 Review of Systems 2 Review of Systems: Yes all other systems are reviewed and are negative PMFSH Past Medical History Medical History COVID-19 Social History Social History Patient Tobacco Use Status: Tobacco use Unknown Advance Directives: No Advance Directives Information Provided: Yes Do you have a plan to hurt others: No Plan Physical Exam 2 Vital Signs: Vital Signs: Last Vital Signs Temp 97.5 F 03/30/24 00:21 Pulse 90 03/30/24 00:21 Resp 18 03/30/24 00:21 BP 142/88 H 03/30/24 00:21 Pulse Ox 99 03/30/24 00:21 O2 Del Method Room Air 03/30/24 00:21 BMI result Body Mass Index 37.1 Extrem: Ankle/foot/toe images: 1. Tenderness at the plantar fasciitis area Medical Decision Making Medical Decision Making [facility] Narrative: Patient clinically with plantar fasciitis advised ibuprofen and advised plantar fasciitis exercises as advised Independent Interpretation I performed an independent interpretation of an: Plain X-Ray Radiology Impression Discussion of test interpretation with radiology: I have reviewed the radiologist's reading. Discharge Plan Discharge Clinical Impression: Plantar fasciitis of left foot Patient Disposition: Home, Self-Care Instructions: Plantar Fasciitis (ED), Plantar Fasciitis Exercises (ED) Additional Instructions: Wear high arch shoes Plantar fasciitis exercises as advised Ibuprofen for pain Prescriptions: No Action azithromycin 250 mg tablet 250 mg PO DAILY 4 Days Qty: 4 0RF Rx Instructions: start on day 2 of therapy Print Language: Turkmen
[2024-03-30 01:41] VITALS: BP 142/88; PULSE 90; RESP 18; TEMP 36.4; O2SAT 99
== END 2024-03-30 01:51 | disposition home or self-care (01) ==
PROVIDERS: Emergency Provider Internal Medicine; PCP Internal Medicine
DX: M72.2 Plantar fascial fibromatosis (principal); M79.672 Pain in left foot
CPT/HCPCS: 73650; 99282; 99283